=== PATIENT | female | born 1945 | race Caucasian/White ===

== ENCOUNTER 2017-02-02 10:48 | Emergency (ER) | payer MEDICARE ==
[2017-02-02] VITALS (8 sets, daily range): BP systolic 147–184; BP diastolic 70–92; PULSE 68–84; RESP 16–24; TEMP 97.9; O2SAT 96–99
[~2017-02-02] VITALS: Ht 162.6 cm; Wt 112.3 kg
[~2017-02-02 10:48] MED LIST: CORTI10A EACH EAR; Z.0.NO CURRENT MEDS; ZYRT10TA12 PO
[2017-02-02] MEDS ORDERED: MORPHINE SULFATE 4 MG/ML INJ IV PUSH ONE (11:15)
[2017-02-02] MEDS ORDERED: SODIUM CHLORIDE 0.9% FLUSH 5 ML FLUSH IVF PRN (11:15)
[2017-02-02] MEDS ORDERED: SODIUM CHLOR 0.9% 1000 ML INJ 1,000 ML IV SCH (11:15)
[2017-02-02] MEDS ORDERED: NITR0.4S SL (11:25)
[2017-02-02] MEDS ORDERED: FISHCAP4 PO (11:25)
[2017-02-02] MEDS ORDERED: FLUT50SP EACH NARE (11:25)
[2017-02-02] MEDS ORDERED: METF1000 PO (11:25)
[2017-02-02 11:32] LABS: AUTOMATED NEUTROPHIL # 5.3 TH/MM3 (1.8-7.7); BASOPHIL # 0.1 TH/MM3 (0-0.2); BASOPHIL % 0.9 % (0.0-2.0); EOSINOPHIL # 0.1 TH/MM3 (0-0.4); EOSINOPHIL % 1.1 % (0.0-4.0); HEMATOCRIT 39.6 % (35.0-46.0); HEMO FLAGS DIFF FINAL; LYMPH % 28.5 % (9.0-44.0); LYMPHOCYTE # 2.3 TH/MM3 (1.0-4.8); MEAN CELL VOLUME 87.9 FL (80.0-100.0); MEAN CORPUSCULAR HEMOGLOBIN 28.6 PG (27.0-34.0); MEAN CORPUSCULAR HGB CONC 32.5 % (32.0-36.0); MONO % 5.6 % (0.0-8.0); NEUT % 63.9 % (16.0-70.0); PLATELET COUNT 243 TH/MM3 (150-450); RED BLOOD COUNT 4.51 MIL/MM3 (4.00-5.30); RED CELL DISTRIBUTION WIDTH 15.1 % (11.6-17.2); WHITE BLOOD COUNT 8.2 TH/MM3 (4.0-11.0)
[2017-02-02 11:39] LABS: APTT (PATIENT) 23.2 SEC (24.3-30.1); INTERNATIONAL NORMALIZED RATIO 0.9 RATIO; PROTHROMBIN TIME - PATIENT 9.8 SEC (9.8-11.6)
[2017-02-02 11:44] LABS: ANION GAP 7 MEQ/L (5-15); AST (GOT) 20 U/L (15-37); BLOOD UREA NITROGEN 15 MG/DL (7-18); CHLORIDE 104 MEQ/L (98-107); GLOMERULAR FILTRATION RATE 44 ML/MIN (>89); POTASSIUM 4.3 MEQ/L (3.5-5.1); SODIUM (NA) 140 MEQ/L (136-145)
[2017-02-02 11:49] LABS: ALKALINE PHOSPHATASE 173 U/L (45-117); ALT (GPT) 23 U/L (10-53); TOTAL BILIRUBIN ADULT 0.2 MG/DL (0.2-1.0)
--- NOTE | 2017-02-02 11:55 | PD ---
HPI Chief Complaint: Chest Pain Time Seen by Provider: 11:05 Travel History International Travel<30 days: No Contact w/Intl Traveler<30days: No Traveled to known affect area: No History of Present Illness HPI Patient is [place]-speaking and history was obtained from her family member. She was offered a lottery clerk but declined. This is a 71-year-old female who presents to the emergency department with left upper quadrant abdominal pain that's been present for 2 days, constant, moderate severity, associated with nausea but no vomiting. She denies any fevers or chills. She has had some loose stools. She denies any shortness of breath. She's never had pain like this before. She doesn't drink alcohol or smoke cigarettes. PFSH Past Medical History High Cholesterol: Yes Diabetes: Yes Patient Takes Glucophage: No Diminished Hearing: No Hypertension: Yes Tetanus Vaccination: Unknown Influenza Vaccination: Yes ?: Not Menopausal: Yes Past Surgical History Ear Surgery: Yes Social History Alcohol Use: No Tobacco Use: No Substance Use: No Allergies-Medications (Allergen,Severity, Reaction): Coded Allergies: No Known Allergies (Verified , 02/02/17) Reported Meds & Prescriptions Reported Meds & Active Scripts Active Reported Fish Oil + D3 (Fish Oil-Cholecalciferol) 1,200-1,000 Mg-Unit Cap 1 Cap PO DAILY Fluticasone Nasal [place] 50 Mcg/Act Naspr 50 Mcg EACH NARE BID 50 mcg/spray Metformin (Metformin HCl) 1,000 Mg Tab 1,000 Mg PO BIDPC With meals Nitrostat SL (Nitroglycerin) 0.4 Mg Subl 0.4 Mg SL ONCE Review of Systems Except as stated in HPI: all other systems reviewed are Neg Physical Exam Narrative GENERAL:Well appearing, no acute distress SKIN: Warm and dry. HEAD: Atraumatic. Normocephalic. EYES: Pupils equal and round. No injection or drainage. ENT: Moist mucous membranes NECK: Trachea midline. CARDIOVASCULAR: Regular rate and rhythm. No murmur appreciated. RESPIRATORY: Clear to auscultation. Breath sounds equal bilaterally. GASTROINTESTINAL: Abdomen diffusely tender to palpation worse in the left upper quadrant with no rebound or guarding. Abdomen is distended. MUSCULOSKELETAL: No obvious deformities. NEUROLOGICAL: Awake and alert. No obvious cranial nerve deficits. Moving all extremities. PSYCHIATRIC: Appropriate mood and affect; insight and judgment normal. Data Data Last Documented VS Vital Signs Date Time Temp Pulse Resp B/P Pulse Ox O2 Delivery O2 Flow Rate FiO2 02/02/17 13:35 18 02/02/17 11:29 75 151/71 99 Nasal Cannula 2 02/02/17 10:51 97.9 Orders Electrocardiogram (02/02/17 11:11) Complete Blood Count With Diff (02/02/17 11:11) Comprehensive Metabolic Panel (02/02/17 11:11) Prothrombin Time / Inr (Pt) (02/02/17 11:11) Act Partial Throm Time (Ptt) (02/02/17 11:11) Troponin I (02/02/17 11:11) Lipase (02/02/17 11:11) Ecg Monitoring (02/02/17 11:11) Bilateral Bp Monitoring (02/02/17 11:11) Iv Access Insert/Monitor (02/02/17 11:11) Oximetry (02/02/17 11:11) Oxygen Administration (02/02/17 11:11) Sodium Chloride 0.9% Flush (Ns Flush) (02/02/17 11:15) Morphine Inj (Morphine Inj) (02/02/17 11:15) Sodium Chlor 0.9% 1000 Ml Inj (Ns 1000 M (02/02/17 11:15) Ct Abd/Pel W Iv Contrast(Rout) (02/02/17 ) Iohexol 350 Inj (Omnipaque 350 Inj) (02/02/17 14:15) Labs Laboratory Tests Test 02/02/17 11:15 White Blood Count 8.2 TH/MM3 Red Blood Count 4.51 MIL/MM3 Hemoglobin 12.9 GM/DL Hematocrit 39.6 % Mean Corpuscular Volume 87.9 FL Mean Corpuscular Hemoglobin 28.6 PG Mean Corpuscular Hemoglobin 32.5 % Concent Red Cell Distribution Width 15.1 % Platelet Count 243 TH/MM3 Mean Platelet Volume 8.8 FL Neutrophils (%) (Auto) 63.9 % Lymphocytes (%) (Auto) 28.5 % Monocytes (%) (Auto) 5.6 % Eosinophils (%) (Auto) 1.1 % Basophils (%) (Auto) 0.9 % Neutrophils # (Auto) 5.3 TH/MM3 Lymphocytes # (Auto) 2.3 TH/MM3 Monocytes # (Auto) 0.5 TH/MM3 Eosinophils # (Auto) 0.1 TH/MM3 Basophils # (Auto) 0.1 TH/MM3 CBC Comment DIFF FINAL Differential Comment Prothrombin Time 9.8 SEC Prothromb Time International 0.9 RATIO Ratio Activated Partial 23.2 SEC Thromboplast Time Sodium Level 140 MEQ/L Potassium Level 4.3 MEQ/L Chloride Level 104 MEQ/L Carbon Dioxide Level 29.0 MEQ/L Anion Gap 7 MEQ/L Blood Urea Nitrogen 15 MG/DL Creatinine 1.22 MG/DL Estimat Glomerular Filtration 44 ML/MIN Rate Random Glucose 196 MG/DL Calcium Level 8.7 MG/DL Total Bilirubin 0.2 MG/DL Aspartate Amino Transf 20 U/L (AST/SGOT) Alanine Aminotransferase 23 U/L (ALT/SGPT) Alkaline Phosphatase 173 U/L Troponin I LESS THAN 0.02 NG/ML Total Protein 8.0 GM/DL Albumin 3.1 GM/DL Lipase 141 U/L MDM Medical Decision Making Medical Screen Exam Complete: Yes Emergency Medical Condition: Yes Interpretation(s) afebrile, mild hypertension no leukocytosis renal insufficiency troponin less than .02 ekg: nsr, no st changes ct abd pelvis: no acute process lipase is normal Differential Diagnosis Acute coronary syndrome, pancreatitis, gastritis, peptic ulcer disease, colitis Narrative Course This is a 71-year-old female who presents to the emergency department with left- sided chest pain and abdominal pain. She is quite tender throughout her abdomen. Labs are obtained which were reassuring. CT abdomen and pelvis was negative for acute surgical etiology of the patient's symptoms. Her pain has been constant for 3 days and her troponin was negative and her EKG is nonischemic. I think the patient can safely be discharged and follow up with her primary care physician. I had a long conversation with the patient's family member given concern as we didn't identify an etiology of her symptoms. I do worry a little about the language barrier but the patient says she feels much better and she wants to go home. I advised them to return to the emergency department if her symptoms worsen at all. Diagnosis Primary Impression: Abdominal pain Qualified Code: R10.84 - Generalized abdominal pain Patient Instructions: General Instructions Additional Instructions: If you develop severe chest pain, shortness of breath, sweating, lightheadedness , dizziness or difficulty breathing return to the emergency department immediately. Followup with your primary care physician in 2-3 days if your symptoms are not resolved. Med/Other Pt SpecificInfo: No Change to Meds Disposition: 01 DISCHARGE HOME Condition: Stable Cristina Lamas MD Feb 02, 2017 11:54
[2017-02-02] MEDS ORDERED: IOHEXOL 350 MG/ML 10 ML VIAL (for RAD DIAG) IV ONE (14:15)
--- NOTE | 2017-02-02 14:20 | RADRPT ---
EXAM DATE/TIME: 02/02/2017 14:00 [facility] COMPARISON: No previous studies available for comparison. INDICATIONS : Left side abdominal pain and distention. IV CONTRAST: 94 cc Omnipaque 350 (iohexol) IV ORAL CONTRAST: No oral contrast ingested. RADIATION DOSE: 27.06 CTDIvol (mGy) MEDICAL HISTORY : Hypertension. Diabetes SURGICAL HISTORY : None. ENCOUNTER: Initial ACUITY: 1 day PAIN SCALE: 3/10 LOCATION: Left abdomen TECHNIQUE: Volumetric scanning of the abdomen and pelvis was performed. Using automated exposure control and ad justment of the mA and/or kV according to patient size, radiation dose was kept as low as reasonably achievable to obtain optimal diagnostic quality images. FINDINGS: LOWER LUNGS: The visualized lower lungs are clear. LIVER: Homogeneous density without lesion. There is no dilation of the biliary tree. No calcified gallston es. SPLEEN: Normal size without lesion. PANCREAS: Within normal limits. KIDNEYS: Normal in size and shape. There is no mass, stone or hydronephrosis. ADRENAL GLANDS: Within normal limits. VASCULAR: There is no aortic aneurysm. BOWEL/MESENTERY: The stomach, small bowel, and colon demonstrate no acute abnormality. There is no free intraperitone al air or fluid. ABDOMINAL WALL: Within normal limits. RETROPERITONEUM: There is no lymphadenopathy. BLADDER: No wall thickening or mass. REPRODUCTIVE: Within normal limits. INGUINAL: There is no lymphadenopathy or hernia. MUSCULOSKELETAL: Within normal limits for patient age. CONCLUSION: No acute disease. Mathew Patel MD on February 02, 2017 at 14:16 Board Certified Radiologist. This report was verified electronically.
--- NOTE | 2017-02-02 15:34 | EKG ---
Date Performed: 02/02/2017 Time Performed: 11:11:54 PTAGE: 71 years EKG: Sinus rhythm LOW QRS VOLTAGE IN PRECORDIAL LEADS [QRS DEFLECTION< 1.0.mv IN CHEST LEADS] BORDERLINE ECG PREVIOUS TRACING 01/26/20122 18.57.28 Compared to prior tracing no significant change DOCTOR: Ruth Correa Interpretating Date/Time 02/02/2017 15:32:38
== END 2017-02-02 15:21 | disposition home or self-care (01) ==
LOC: NEPC 10:48
DX: R10.84 Generalized abdominal pain (principal); R11.0 Nausea; R07.89 Other chest pain; R94.31 Abnormal electrocardiogram [ECG] [EKG]; E11.9 Type 2 diabetes mellitus without complications; I10 Essential (primary) hypertension; E78.00 Pure hypercholesterolemia, unspecified; Z79.84 Long term (current) use of oral hypoglycemic drugs
CPT/HCPCS: 74177; 80053; 83690; 84484; 85025; 85610; 85730; 93005; 96361; 96374; 99284; J2270; J7030; Q9967